=== PATIENT | female | born 1955 | race Caucasian/White ===

== ENCOUNTER → 2020-06-06 10:32 | Outpatient (CLI) | payer MEDICARE, OTHER, SELFPAY ==
[2020-06-06 12:30] LABS: Thyroid Stimulating Hormone 1.26 uIU/mL (0.47-4.68)
== END ==
PROVIDERS: Family Provider Physician Assistant; PCP Nurse Practitioner Family; Referring Provider Nurse Practitioner Family; Visit Provider Nurse Practitioner Family
DX: R63.5 Abnormal weight gain (principal)
CPT/HCPCS: 36415; 84443

== ENCOUNTER → 2020-09-18 10:52 | Outpatient (CLI) | payer MEDICARE, OTHER, SELFPAY ==
--- NOTE | 2020-09-18 11:00 | DIET.PN ---
Dietary Progress Note Assessment: 65y F attending [address] appointment for help with managing her HLD, elevated fasting BG, and obesity. Pt has not had her most recent set of labs done prior to our visit but plans to come in for them tomorrow am. Pt hs been noticing weight creeping up over the past year, going above 200#. Pt has tried a variety of crash diets in the past including keto with some success in losing weight but always then creeping up above where she was previously. HT: 5'5 WT: 207# UBW:175# BMI: 34.4 Labs: getting labs drawn tomorrow Loves sweets, trouble with food choices and eating, is giving up sugar for Lent Exercises daily, somewhat derailed with covid walks 2-5mi per day, does weights Usual Day: wakes and has cup coffee Breakfast: fried egg on sprouted toast c avocado and lettuce and coffee c blueberries Lunch: leftover chicken on salad c sesame type dressing or no dressing, GF crackers Sn: gets tired in afternoon and has snack-piece fruit, handful of cashews or organic chips Dinner: meat (orange chicken, salmon, chicken), jonathan rice, salad tries to not eat anything after dinner but has been bad lately, had two bowls of ice cream Stops by [employer] for frozen mocha, if daughter comes up does sugar cookies sleeps well usually Not a picky eater. 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 She in general has a healthy diet but is out of touch with her hunger and fullness signals often waiting too long to eat leading her to snack on high sugar, high carb foods. Pt accommodates her husbands food preferences over her own. Nutrition Diagnosis: obesity r/t irregular eating and nutrition related knowledge deficit aeb BMI 34.4 despite daily exercise, pt often skips lunch and has drive through sugar coffees, pt has many questions about fiber and sugar. Interventions: 1. To address obesity, educated pt on the hunger scale, instructed to eat at a 3 and stop at an 8. Pt will practice using hunger scale for portion control and for proper meal and snack timing. 2. To address HLD, elevated fasting sugar, and obesity, introduced pt to balanced plate. Pt will ensure 1/4 pro, 1/4 cho (including sweets), and 1/2 fruit/non-starching veg at meals and snacks to support metabolism and good health. 3. To support HLD, elevated fasting sugar, and obesity, educated pt on role of fiber in chronic dz management. Using handout, set goal for 25g fiber per day. Pt will track fiber intake to identify current intake and slowly increase intake to goal. 4. To support elevated fasting blood sugar and obesity, educated pt on sources of added sugar in the diet and to limit these to 25g/d. Pt will limit fruit to 2 cups per day. Monitoring/Evaluations: f/u in 2w to assess progress and problem solve barriers.
== END ==
PROVIDERS: Family Provider Physician Assistant; PCP Nurse Practitioner Family; Referring Provider Nurse Practitioner Family; Visit Provider Nurse Practitioner Family
DX: E78.5 Hyperlipidemia, unspecified (principal); R73.9 Hyperglycemia, unspecified; E66.9 Obesity, unspecified; Z68.34 Body mass index [BMI] 34.0-34.9, adult; Z71.3 Dietary counseling and surveillance
CPT/HCPCS: 97802

== ENCOUNTER → 2020-10-03 10:56 | Outpatient (CLI) | payer MEDICARE, OTHER, SELFPAY ==
--- NOTE | 2020-10-03 11:47 | DIET.PN ---
Dietary Progress Note Pt attending f/u for help with diet to manage high cholesterol and for rn long term care weight control. Pt reports regularly reading food labels now and is shocked at how low fiber and high sugar many of the foods she was eating were. Pt lost 4# in 2w though continued regular daily exercise and being more discerning about her diet. Pt is relieved she can still eat foods she loves (sausage, eggs) but occasionally and not every day like she did before. Pt desired ideas for breakfast. We discussed not stacking high cholesterol foods on each other (do not eat eggs, cheese, sausage in same meal), do not eat these foods daily. Pt enjoys oatmeal, usually adds maple syrup, apple, raisins. Encouraged pt to skip the raisins and add cinnamon and ground flaxseed to help with her fasting BG. Encouraged pt to continue being vigilant on eating high fiber diet. Discussed if she is having a burger to not have a bun, chips, potato salad, dessert, and cocktail at the same meal. If she wants a carb filled side, skip the bun and eat burger on lettuce leaf, or eat the burger on a ww bun but add a big salad or grilled veggies and baked beans. Pt happy with progress and advice, would continue RD appts if not out of pocket expense.
== END ==
PROVIDERS: Family Provider Physician Assistant; PCP Nurse Practitioner Family; Referring Provider Nurse Practitioner Family; Visit Provider Nurse Practitioner Family
DX: E78.5 Hyperlipidemia, unspecified (principal)
CPT/HCPCS: 97803

== ENCOUNTER → 2021-03-24 15:07 | Outpatient (CLI) | payer MEDICARE, OTHER, SELFPAY | PROVIDERS: Family Provider Physician Assistant; PCP Nurse Practitioner Family; Referring Provider Nurse Practitioner Family; Visit Provider Nurse Practitioner Family | DX: Z98.890 Other specified postprocedural states (principal); Z53.20 Procedure and treatment not carried out because of patient's decision for unspecified reasons ==

== ENCOUNTER → 2021-03-31 13:21 | Outpatient (CLI) | payer MEDICARE, OTHER, SELFPAY ==
--- NOTE | 2021-03-31 | DI.US.S_ITS ---
PROCEDURE: US CAROTID DOPPLER BI INDICATIONS: HISTORY OF LEFT SIDED CAROTID ENDARTERECTOMY TECHNIQUE: Color and pulse Doppler interrogation was performed of both carotid systems, with image documentation and velocity measurements. COMPARISON: [facility], , CAROTID ARTERY DOPPLER BILAT, 04/14/2009, 8:07. [facility], , CAROTID ARTERY DOPPLER BILAT, 03/04/2008, 9:57. [facility], , CAROTID ARTERY DOPPLER BILAT, 03/14/2007, 10:47. [facility], , CAROTID ARTERY DOPPLER BILAT, 11/23/2010, 8:53. FINDINGS: Stenosis calculations are based on SRU (Society of Radiologists in Ultras[employer]) criteria. The flow velocities and the arterial waveforms are normal within both carotid arterial systems. Atherosclerotic plaque is seen on both sides. The estimated degree of internal carotid artery stenosis is less than 50%. Antegrade flow is confirmed within both vertebral arteries. IMPRESSION: No hemodynamically significant stenosis is seen. Similar to prior. Atherosclerotic plaque is noted bilaterally. Dictated by: David Brannon M.D. on 03/31/2021 at 14:32 Approved by: David Brannon M.D. on 03/31/2021 at 14:33
== END ==
PROVIDERS: Family Provider Physician Assistant; PCP Nurse Practitioner Family; Referring Provider Nurse Practitioner Family; Visit Provider Nurse Practitioner Family
DX: I65.23 Occlusion and stenosis of bilateral carotid arteries (principal); Z98.890 Other specified postprocedural states
CPT/HCPCS: 93880

== ENCOUNTER → 2021-04-14 14:54 | Outpatient (CLI) | payer MEDICARE, OTHER, SELFPAY ==
--- NOTE | 2021-04-14 14:56 | DI.RAD.S_ITS ---
PROCEDURE: XR HIP W PEL IF DONE RT 2V INDICATIONS: chronic right hip pain, worse, persisting TECHNIQUE: AP pelvis with lateral view(s) of the right hip(s). COMPARISON: None. FINDINGS: Bones: No fractures or dislocations. Mild and symmetric degenerative joint space loss at the femoroacetabular joints. Pelvic ring appears intact. Incidental note made of disc degeneration and endplate spurring at L5-S1. No suspicious bony lesions. Soft tissues: The visualized bowel gas pattern is normal. No suspicious soft tissue calcifications. IMPRESSION: Mild and symmetric femoroacetabular joint space loss. Dictated by: Carley Howell M.D. on 04/14/2021 at 22:19 Approved by: Carley Howell M.D. on 04/14/2021 at 22:20
== END ==
PROVIDERS: Family Provider Physician Assistant; PCP Nurse Practitioner Family; Referring Provider Nurse Practitioner Family; Visit Provider Nurse Practitioner Family
DX: G89.29 Other chronic pain (principal); M25.551 Pain in right hip
CPT/HCPCS: 73502